=== PATIENT | female | born 1945 | race Two or more races ===

== ENCOUNTER 2018-09-12 09:03 | Inpatient (IN) | payer OTHER ==
[~2018-09-12] VITALS: Ht 152.4 cm; Wt 79.4 kg
[2018-09-20] MEDS ORDERED: ATENOLOL25 MG PO (15:14)
[2018-09-20] MEDS ORDERED: TRENTAL PO (15:14)
[2018-09-20] MEDS ORDERED: ATORVASTATIN CA10 MG PO (15:14)
[2018-09-20] MEDS ORDERED: SYNTHROID75 MCG PO (15:14)
[2018-09-20] MEDS ORDERED: [UNRECOGNIZED DRUG - OTHER] PO (15:15)
[2018-09-20] MEDS ORDERED: LIPO-FLAVONOID1 EACH PO (15:16)
[2018-09-20] MEDS ORDERED: LEVOBUNOLOL HCL5 ML OP (15:16)
[2018-09-20] MEDS ORDERED: REFRESH OPTIVE10 ML OP (15:17)
[2018-09-20] MEDS ORDERED: REFRESH PO (15:18)
[2018-09-25] MEDS ORDERED: PENTOXIFYLLINE400 MG PO (09:53)
[2018-09-25] MEDS ORDERED: ESCITALOPRAM OX10 MG PO (09:54)
[2018-09-25] MEDS ORDERED: REFRESH OPTIVE10 ML OP (09:55)
[2018-09-25] MEDS ORDERED: REFRESH TEARS15 ML OP (09:56)
[2018-09-26] MEDS ORDERED: INTEGRA PLUS C1 EACH PO (06:21)
[2018-09-26] MEDS ORDERED: XARELTO10 MG PO (06:21)
[2018-09-26] MEDS ORDERED: OXYC1TAB9 PO (06:21)
== END 2018-09-26 16:38 | DRG 470 ==
LOC: EDSTATUS 09-20 15:00 → ADM 09-20 15:00 → SURG 09-24 05:20 → O/R 09-24 05:20 → SURH 09-24 15:00 → SURG 09-24 19:25
PROVIDERS: ADMIT Orthopaedic Surgery Sports Medicine
PROC: 0SRC0J9 Replacement of Right Knee Joint with Synthetic Substitute, Cemented, Open Approach (ICD-10-PCS; principal; 2018-09-24 17:15)
DX: M17.11 Unilateral primary osteoarthritis, right knee (principal); I10 Essential (primary) hypertension; E03.8 Other specified hypothyroidism